=== PATIENT | male | born 1960 | race Caucasian/White ===

== ENCOUNTER → 2023-07-23 | Outpatient (CLI) | payer OTHER ==
[~2023-07-23] MED LIST: ISOVUE-370 76% 100ML VIAL ONE
== END ==
LOC: M PLAIMG 08:35
PROVIDERS: ATTEND Otolaryngology
DX: D37.05 Neoplasm of uncertain behavior of pharynx (principal); R91.8 Other nonspecific abnormal finding of lung field
CPT/HCPCS: 70491; Q9967

== ENCOUNTER 2023-08-11 05:57 | Day surgery (SDC) | payer OTHER ==
[~2023-08-11] VITALS: Ht 180.3 cm; Wt 61.7 kg
[~2023-08-11 05:57] MED LIST changes: +ACET-907 PO; +BUDE0.5S6 INH; +BUDE180INH INH; +DUO NEB INH; +ECOT81TA5 PO; +FURO40TA2 PO; -ISOVUE-370 76% 100ML VIAL ONE; +LIPI80TA PO; +POTA-150 PO
[2023-08-11] MEDS ORDERED: ROCURONIUM BROMIDE 50MG/5ML VIAL As Ordered ONE (06:54)
[2023-08-11] MEDS ORDERED: LIDOCAINE 2% 100MG/5ML SDV (FOR ANES.) As Ordered ONE (06:54)
[2023-08-11] MEDS ORDERED: propofoL 200 MG/20 ML VIAL As Ordered ONE (06:54)
[2023-08-11] MEDS ORDERED: ONDANSETRON 4MG 2ML VIAL As Ordered ONE (06:54)
[2023-08-11] MEDS ORDERED: SUGAMMADEX SODIUM 500 MG/5 ML VIAL (BRIDION) As Ordered ONE (06:54)
[2023-08-11] MEDS ORDERED: MIDAZOLAM INJ 2MG/2ML VIAL As Ordered ONE (07:00)
[2023-08-11] MEDS ORDERED: fentaNYL 100 MCG/2 ML INJECTION As Ordered ONE (07:00)
[2023-08-11] MEDS: LR 1,000 ML IV SCH (07:31)
[2023-08-11] MEDS: EPINEPHrine 1MG/10ML SYRINGE 1.5IN As Ordered ONE (07:55)
[2023-08-11] MEDS: CETACAINE SPRAY 5GM As Ordered ONE (07:55)
[2023-08-11] MEDS ORDERED: ACETAMINOPHEN 1000MG 100ML IV BAG As Ordered ONE (07:59)
[2023-08-11] MEDS: THROMBIN 5,000 UNITS VIAL As Ordered ONE (08:20)
[2023-08-11] MEDS ORDERED: ONDANSETRON 4MG 2ML VIAL IV PRN (08:50)
[2023-08-11] MEDS: fentaNYL 100 MCG/2 ML INJECTION IV PRN ×2 (09:17→09:28)
[2023-08-11] MEDS: oxyCODONE 5MG TAB PO PRN (10:03)
[2023-08-11 10:40] VITALS: BP 99/55; TEMP 97.4; O2SAT 97
== END 2023-08-11 10:50 | disposition home or self-care (01) ==
LOC: M SDC 05:57
PROVIDERS: ATTEND Internal Medicine Pulmonary Disease
DX: C34.11 Malignant neoplasm of upper lobe, right bronchus or lung (principal); I65.22 Occlusion and stenosis of left carotid artery; Z99.3 Dependence on wheelchair; Z87.891 Personal history of nicotine dependence; Z79.899 Other long term (current) drug therapy; Z86.73 Personal history of transient ischemic attack (TIA), and cerebral infarction without residual deficits
CPT/HCPCS: 31627; 31628; 71045; 76000; 88309; 93005; C1601; J0131; J0171; J1100; J2250; J2405; J3010; S2900